=== PATIENT | male | born 1995 | race Caucasian/White ===

== ENCOUNTER 2024-10-04 14:10 | Emergency (ER) | payer BC, MEDICAID ==
[~2024-10-04] VITALS: Ht 182.9 cm; Wt 77.7 kg
[2024-10-04 14:15] VITALS: BP 129/84; PULSE 82; RESP 16; TEMP 98.2; O2SAT 99
[2024-10-04] MEDS ORDERED: AMOX500C2 PO (14:27)
[2024-10-04] MEDS: amoxicillin 250mg capsule PO ONE (14:34)
[2024-10-04 14:37] LABS: STREP A SCREEN POSITIVE (Neg)
== END 2024-10-04 14:36 | disposition home or self-care (01) ==
LOC: ER 14:10
DX: J03.90 Acute tonsillitis, unspecified (principal)
CPT/HCPCS: 87880; 99283